=== PATIENT | female | born 1945 | race Caucasian/White ===

== ENCOUNTER 2016-09-19 13:06 | Inpatient (IN) | payer MEDICARE, OTHER ==
[~2016-09-19] VITALS: Ht 162.6 cm; Wt 63.6 kg
[2016-09-19 12:35] LABS: CLARITY (FLUID) HAZY; COLOR (FLUID) YELLOW; RBC (FLUID) 294 u/L; WBC (FLUID) 38 u/L
[2016-09-19 12:37] LABS: LYMPHOCYTES (FLUID) 64 %; MONOCYTES (FLUID) 20 %; NEUTROPHILS (FLUID) 16 %
[~2016-09-19 13:06] MED LIST: CALCIUM + VITA1 EACH PO; COMPETE1 EACH PO; FLUTICASONE PRO30 GM TOP; NEURONTIN100 MG PO; NORITATE60 GM TOP; PLAQUENIL200 MG PO; PREDNISONE 5MG T5 MG PO; SLOW RELEASE I168 MG PO; SULFASALAZINE500 MG PO; VITAMIN D2000 UNI1 PO
--- NOTE | 2016-09-19 13:54 | NUR ---
1015 PT IN ULTRASOUND FOR RIGHT THORACENTESIS. B/P 150/80 P-86 R-18 O2 SAT 96% RA. ALLERGIC TO BACTRIM AND CODEINE. INFORMED CONSENT OBTAINED AND TIME OUT COMPLETED. PROCEDURE PERFORMED BY DR. WEBER WITH PT SITTING UP ON SIDE OF BED. 1100 ML. YELLOW FLUID OBTAINED. NEEDLE REMOVED, BANDAGE IN PLACE. TOLERATED WELL. PORT CHEST X-RAY COMPLETED AND REVIEWED BY DR. WEBER. PT INFORMED OF PNEUMOTHORAX BY DR. WEBER. DISCUSSED PROCEDURE UNDER CT GUIDANCE WITH PT. INFORMED CONSENT OBTAINED FOR 10 FR. THORACIC CATHETER PLACEMENT UNDER CT GUIDANCE. MOVED PATIENT TO CT VIA STRETCHER AND PLACED ON CT TABLE WITH HER RIGHT SIDE UP. O2 SAT REMAINS 96% RA. COLOR PINK. RESPIRATIONS EASY. 10 FR. THORACIC CATHETER INSERTED PER DR. WEBER AND CONNECTED TO PLEURA-VAC. DR. WEBER CONTACTED DR. ALVES WHO WILL ADMIT PT TO MED-SURG BED.1130 B/P 123/68 P-82 R-18 O2 SAT 96% RA AFTER CHEST CATHETER PLACED. RESTING ON STRETCHER WITH HOB ELEVATED 30 DEGREES. RESPS EASY. TALKING WITH FAMILY MEMBER. EATING ICE CHIPS. 1145 B/P 126/72 P-84 R-18 O2 SAT 96%. CONTINUES TO REST WITHOUT COMPLAINTS. BED PENDING ON MED-SURG. 1200 B/P 125/78 P-84 R-16 O2 SAT 97% RA. TALKING WITH FAMILY MEMBER WITHOUT COMPLAINTS OF DISCOMFORT. 1215 B/P 128/72 P-86 R-18 O2 SAT 96% RA. 1230 REPORT PHONED TO [facility]. 1240 TRANSPORTED TO MED SURG BED 216. MOVED TO BED, TOLERATED WELL. RESPS EASY. FAMILY MEMBER AT BEDSIDE.
[2016-09-19 14:33] LABS: HCT 40.2 % (37.0-47.0); HGB 13.5 g/dl (12.5-16.0); MCH 32.5 pg (25.0-31.0); MCHC 33.6 g/dL (32.0-36.0); MCV 96.6 fL (78.0-100.0); RBC 4.16 M/uL (4.20-5.40); WBC 8.4 K/uL (4.0-10.5)
[2016-09-19 14:55] LABS: ALBUMIN 3.8 g/dL (3.4-4.8); CREATININE 0.6 mg/dL (0.5-1.0); GLOBULIN (CALCULATION) 2.9 g/dL (2.2-4.2); POTASSIUM 3.9 mmol/L (3.5-5.1); TOTAL PROTEIN 6.7 g/dL (6.4-8.3)
[2016-09-19 14:58] LABS: BILIRUBIN - TOTAL 4.9 mg/dL (0.1-1.0)
[2016-09-20 10:10] LABS: CREATININE 0.7 mg/dL (0.5-1.0); POTASSIUM 3.8 mmol/L (3.5-5.1)
--- NOTE | 2016-09-20 11:45 | NUR ---
PER DR MONROY HE WAS NOTIFIED FROM RADILOGIST SHE MISS READ THE SIZE OF TUBE INSTEAD OF IT BEING 8 LATVIAN THE CURRENT TUBE IS 10 LATVIAN AND THERE IS NOT A 12 LATVIAN TO PIGTAIL -CALL PLACED TO DR JEROME TO INFORM HIM, HE STATED UNDERSTANDING AND SCHEDULED PT TO HAVE REPEAT CXR IN AM
[2016-09-20 18:27] LABS: CKMB 1.39 ng/mL (0.97-4.94); TROPONIN T < 0.010 ng/mL
--- NOTE | 2016-09-20 19:30 | NUR ---
AT 1724 PT CALLED OUT STATING SHE WAS HAVING GENERALIZED PAIN- X 1 NORCO 5/325MG GIVEN PO AT 1730 PT CALLED OUT STATING PAIN WAS INCREASING AND MORE ON HER LEFT SIDE TOWARDS HER HEART STATES IT FELT SHARP 17:30 V/S AT THIS TIME 123/79 86 18 98.1 100% CALL PLACED TO DR MONROY - AWAITING CALL BACK CALL RESP REQUESTING STAT EKG, FSBS AT THIS TIME 119 O2 2 LITERS N/C PLACED FOR COMFORT - PT RATES HER PAIN AT A 8 AT THIS TIME 17:45 [address] X1 DR MONROY AT BEDSIDE RECIEVED ORDER FOR 1MG MORHINE IVP @ 1750 121/77 91 18 98.1 100% PT RATES PAIN #8 105/71 89 18 98.2 98% RECIEVED ORDER FOR ADDITIONAL DOSE OF MORPHINE 2MG IVP @ 1755 OBTAIN BLOOD WORK AT THIS TIME FOR CARDIAC ENZYMES - BLOOD SENT TO LAB STAT PT STATES MINIMAL RELIEF AT THIS TIME PT FAMILY FRIEND IN TO SEE PT, PT WAS CONVERSING WITH VISITOR WAS ABLE TO HAVE A CONVERSATION RATED HER PAIN AT 4-6 PT PLACED ON TELE MONITOR RECIEVED ORDER FOR PCXR AT THIS TIME RAD CALLED FOR STAT PCXR RAD IN AT 1835 OBTAIN CXR V/S @ THIS TIME 1820 - 121/77 91 18 98.1 98% RATING PAIN 4-6 RESULTS CPK 33 CKMB 1.39 TROPONIN- T NEG PT CONTINUES TO VERBALIZE CHEST DISCOMFORT STATES IMPROVING BUT GONE V/S 115/84 94 18 98.2 100% PAIN 4 RECIEVED ORDERS TO TRANSFER PT TO ICU REPORT GIVEN TO ICU PT TRANSFERRED
[2016-09-20 21:28] LABS: CKMB 1.26 ng/mL (0.97-4.94); TROPONIN T < 0.010 ng/mL
[2016-09-21 06:46] LABS: CREATININE 0.8 mg/dL (0.5-1.0); POTASSIUM 4.2 mmol/L (3.5-5.1)
[2016-09-21 06:48] LABS: CKMB 1.26 ng/mL (0.97-4.94); TROPONIN T < 0.010 ng/mL
[2016-09-22 04:33] LABS: HCT 40.2 % (37.0-47.0); HGB 13.2 g/dl (12.5-16.0); MCH 32.4 pg (25.0-31.0); MCHC 32.8 g/dL (32.0-36.0); MCV 98.5 fL (78.0-100.0); MPV 9.5 fL (6.0-9.5); RBC 4.08 M/uL (4.20-5.40); WBC 9.5 K/uL (4.0-10.5)
[2016-09-22 04:49] LABS: CREATININE 0.8 mg/dL (0.5-1.0); POTASSIUM 4.8 mmol/L (3.5-5.1)
[2016-09-22 10:35] LABS: BILIRUBIN 1+ mg/dL (NEGATIVE); BLOOD 2+ Ery/uL (NEGATIVE); CLARITY CLEAR (CLEAR); COLOR ORANGE (YELLOW); GLUCOSE (U) NORMAL (NORMAL); KETONE (U) NEGATIVE (NEGATIVE); LEUKOCYTES TRACE Leu/uL (NEGATIVE); NITRITE NEGATIVE (NEGATIVE); PROTEIN TRACE (LOW) mg/dL (NEGATIVE); pH 5.5 (5.0-9.0)
[2016-09-22 10:54] LABS: BACTERIA TRACE
[2016-09-23 06:12] LABS: HCT 37.3 % (37.0-47.0); HGB 12.4 g/dl (12.5-16.0); MCH 32.4 pg (25.0-31.0); MCHC 33.2 g/dL (32.0-36.0); MCV 97.4 fL (78.0-100.0); MPV 9.9 fL (6.0-9.5); RBC 3.83 M/uL (4.20-5.40); RDW 13.8 % (11.5-14.0); WBC 11.8 K/uL (4.0-10.5)
[2016-09-23 06:28] LABS: CREATININE 0.7 mg/dL (0.5-1.0); POTASSIUM 4.8 mmol/L (3.5-5.1)
[2016-09-23 18:38] LABS: CREATININE 0.7 mg/dL (0.5-1.0); POTASSIUM 4.5 mmol/L (3.5-5.1)
[2016-09-24 04:27] LABS: HCT 38.2 % (37.0-47.0); HGB 12.5 g/dl (12.5-16.0); MCH 32.1 pg (25.0-31.0); MCHC 32.7 g/dL (32.0-36.0); MCV 97.9 fL (78.0-100.0); MPV 9.8 fL (6.0-9.5); RBC 3.9 M/uL (4.20-5.40); RDW 13.7 % (11.5-14.0); WBC 8.7 K/uL (4.0-10.5)
[2016-09-24 04:42] LABS: CREATININE 0.7 mg/dL (0.5-1.0); POTASSIUM 4.9 mmol/L (3.5-5.1)
[2016-09-25 05:41] LABS: HCT 37.4 % (37.0-47.0); HGB 12.6 g/dl (12.5-16.0); MCH 32.6 pg (25.0-31.0); MCHC 33.7 g/dL (32.0-36.0); MCV 96.9 fL (78.0-100.0); MPV 9.6 fL (6.0-9.5); RBC 3.86 M/uL (4.20-5.40); RDW 13.9 % (11.5-14.0)
[2016-09-25 05:58] LABS: ALBUMIN 3.2 g/dL (3.4-4.8); BILIRUBIN - TOTAL 2.4 mg/dL (0.1-1.0); CREATININE 0.6 mg/dL (0.5-1.0); GLOBULIN (CALCULATION) 3.3 g/dL (2.2-4.2); MAGNESIUM 2.07 mg/dL (1.40-2.10); PHOSPHORUS 3.3 mg/dL (2.7-4.5); POTASSIUM 5.1 mmol/L (3.5-5.1); TOTAL PROTEIN 6.5 g/dL (6.4-8.3)
[2016-09-26 05:26] LABS: HCT 37.7 % (37.0-47.0); HGB 12.5 g/dl (12.5-16.0); MCH 32.1 pg (25.0-31.0); MCHC 33.2 g/dL (32.0-36.0); MCV 96.7 fL (78.0-100.0); MPV 9.5 fL (6.0-9.5); RBC 3.9 M/uL (4.20-5.40); RDW 13.9 % (11.5-14.0); WBC 6.5 K/uL (4.0-10.5)
[2016-09-26 05:42] LABS: CREATININE 0.8 mg/dL (0.5-1.0)
[2016-09-27 06:18] LABS: HCT 39.8 % (37.0-47.0); HGB 13.1 g/dl (12.5-16.0); MCH 31.7 pg (25.0-31.0); MCHC 32.9 g/dL (32.0-36.0); MCV 96.4 fL (78.0-100.0); MPV 9.5 fL (6.0-9.5); RBC 4.13 M/uL (4.20-5.40); WBC 6.7 K/uL (4.0-10.5)
[2016-09-27 06:35] LABS: ALBUMIN 3.2 g/dL (3.4-4.8); BILIRUBIN - TOTAL 2.1 mg/dL (0.1-1.0); CREATININE 0.7 mg/dL (0.5-1.0); GLOBULIN (CALCULATION) 3.5 g/dL (2.2-4.2); POTASSIUM 4.6 mmol/L (3.5-5.1); TOTAL PROTEIN 6.7 g/dL (6.4-8.3)
[2016-10-06] MEDS ORDERED: LASIX20 MG PO (12:08)
[2016-10-06] MEDS ORDERED: NORCO 5-325 TA1 EACH PO (12:08)
== END 2016-09-27 13:40 | DRG 200 ==
LOC: FIS 13:06 → FMS 13:09 → FIS 13:17 → FMS 16:00 → FICU 09-20 18:55 → FMS 09-22 10:42
PROVIDERS: Internal Medicine Nephrology; Internal Medicine Pulmonary Disease; ADMIT Internal Medicine Cardiovascular Disease
PROC: 0W9930Z Drainage of Right Pleural Cavity with Drainage Device, Percutaneous Approach (ICD-10-PCS; principal; 2016-09-19)
DX: J95.811 Postprocedural pneumothorax (principal); J90 Pleural effusion, not elsewhere classified; E22.2 Syndrome of inappropriate secretion of antidiuretic hormone; I50.32 Chronic diastolic (congestive) heart failure; R18.8 Other ascites; M06.9 Rheumatoid arthritis, unspecified; Z88.2 Allergy status to sulfonamides; Z88.5 Allergy status to narcotic agent; N83.9 Noninflammatory disorder of ovary, fallopian tube and broad ligament, unspecified; E80.6 Other disorders of bilirubin metabolism
CPT/HCPCS: 36415; 71010; 71250; 71260; 76705; 80048; 80053; 81001; 82550; 82553; 82945; 83615; 83735; 83880; 83986; 84100; 84300; 84484; 87070; 87088; 87102; 87116; 87205; 89051; 93005; 97110; 97116; 97162; 97530-GP; G0378; J1885; J1940; J2270; J2405; Q9967

== ENCOUNTER 2016-09-27 13:14 | Inpatient (IN) | payer MEDICARE, OTHER ==
[2016-10-04 10:46] LABS: CREATININE 0.7 mg/dL (0.5-1.0); POTASSIUM 4.6 mmol/L (3.5-5.1)
--- NOTE | 2016-10-05 09:55 | NUR ---
70 YEAR OLD FEMALE DC HOME S/P PNEUMONOTHORAX, A/O X3 WENT OVER DC ORDERS AND FOLLOW UP APPT, R/V UNDERSTANDING
[2016-10-05] MEDS ORDERED: COLACE100 MG PO (12:08)
[2016-10-05] MEDS ORDERED: 8 HOUR650 MG PO (12:09)
--- NOTE | 2016-10-06 08:49 | NUR ---
PT. D/C HOME ON 10/05/16. PT. REQUESTED OUTPT. THERAPY AT [facility]. FIRST APPT IS 10/07/16 @ 10:00 A.M. PT. HAS A ROLLING WALKER, 07/03, ELEVATED TOLIET SEAT, WALK IN SHOWER. PT. HAS A CARDIOLOGY APPT. 10/08, RHEUMATOLOGY APPT. ON 10/[address] BARRON IN [facility] ON AT 3:00 P.M. PER ALCIRA, AMMONIA REFRIGERATION WORKER WITH DR. GARDNER'S OFFICE PT. NEEDS CARDIAC CLERANCE AND PULONARY CLEARANCE BEFORE THEY CAN SCHEDULE SURGERY. ALCIRA [phone]. D/C NOTICE AND QUESTIONNAIRE GIVEN.
[2016-10-06] MEDS ORDERED: LASIX20 MG PO (12:08)
[2016-10-06] MEDS ORDERED: NORCO 5-325 TA1 EACH PO (12:08)
== END 2016-10-05 09:57 | disposition home or self-care (01) | DRG 200 ==
LOC: FSNU 13:14
PROVIDERS: Nurse Practitioner Adult Health; ADMIT Internal Medicine Cardiovascular Disease
DX: J95.811 Postprocedural pneumothorax (principal); J90 Pleural effusion, not elsewhere classified; E22.2 Syndrome of inappropriate secretion of antidiuretic hormone; I50.32 Chronic diastolic (congestive) heart failure; R18.8 Other ascites; Z51.89 Encounter for other specified aftercare; M06.9 Rheumatoid arthritis, unspecified; Z88.2 Allergy status to sulfonamides; Z88.5 Allergy status to narcotic agent; N83.9 Noninflammatory disorder of ovary, fallopian tube and broad ligament, unspecified; E80.6 Other disorders of bilirubin metabolism
CPT/HCPCS: 36415; 80048; 97110; 97116; 97162; 97166; 97530; 97530-GP; 97537

== ENCOUNTER 2020-09-15 14:36 | Day surgery (SDCO) | payer MEDICARE, OTHER ==
[~2020-09-15 14:36] MED LIST changes: +8 HOUR650 MG PO; +ACETAMINOPHEN500 M1 PO; +ADVIL200 M1 PO; +AUGMENTIN 875-1 EACH PO; +BIOFREEZE89 ML TOP; +BUMETANIDE1 MG PO; +BUMEX1 MG PO; +CANE; +COLACE100 MG PO; -COMPETE1 EACH PO; +LASIX20 MG PO; +LINSEED OIL1 ML PO; +MULTI-DAY PLUS1 EAC1 PO; +NORCO 5-325 TA1 EACH PO; +OMEGA-31000 MG PO; +ORENCIA50 MG/0.4 IV; +OXYBUTYNIN CHLO10 MG PO; +RITUXAN500 MG IV; -VITAMIN D2000 UNI1 PO; +VITAMIN D31250 MC1 PO
[2020-09-15 15:54] LABS: BASOPHIL 0.8 % (0-2); EOSINOPHIL 2.1 % (0-7); HCT 38.6 % (37.0-47.0); HGB 12.7 g/dl (12.5-16.0); LYMPHOCYTE 9.9 % (15-48); MCH 32.4 pg (25.0-31.0); MCHC 32.9 g/dL (32.0-36.0); MCV 98.5 fL (78.0-100.0); MONOCYTE 13.2 % (0-12); MPV 10.7 fL (6.0-9.5); NEUTROPHIL 73.8 % (41-80); NRBC 0; PLT 151 K/uL (150-400); RBC 3.92 M/uL (4.20-5.40); RDW 14.6 % (11.5-14.0); WBC 4.8 K/uL (4.0-10.5)
[2020-09-15 16:16] LABS: ALBUMIN 3.1 g/dL (3.4-5.0); BILIRUBIN - TOTAL 2.2 mg/dL (0.2-1.0); BUN/CREAT RATIO (CALC) 19.4 RATIO; CREATININE 1.08 mg/dL (0.51-0.95); GLOBULIN (CALCULATION) 3.2 g/dL; MAGNESIUM 1.4 mg/dL (1.8-2.4); POTASSIUM 3.4 mmol/L (3.5-5.1); TOTAL PROTEIN 6.3 g/dL (6.4-8.2)
[2020-09-15] MEDS ORDERED: BUMEX1 MG PO ×2 (18:16→18:17)
[2020-09-15] MEDS ORDERED: FISH OIL 1,0001 EACH PO (18:17)
[2020-09-15] MEDS ORDERED: FLAXSEED340 GM PO (18:18)
[2020-09-15] MEDS ORDERED: OS-CAL500 MG PO (18:18)
[2020-09-15] MEDS ORDERED: PLAQUENIL200 MG PO (18:19)
[2020-09-15] MEDS ORDERED: DITROPAN5 MG PO (18:19)
[2020-09-15] MEDS ORDERED: NEURONTIN100 MG PO (18:19)
[2020-09-15] MEDS ORDERED: TYMLOS1.56 ML SC (18:20)
[2020-09-15] MEDS ORDERED: VITAMIN D350 MC3 PO (18:21)
[2020-09-16 04:48] LABS: HCT 38.4 % (37.0-47.0); HGB 12.4 g/dl (12.5-16.0); MCH 31.7 pg (25.0-31.0); MCHC 32.3 g/dL (32.0-36.0); MCV 98.2 fL (78.0-100.0); MPV 10.6 fL (6.0-9.5); RBC 3.91 M/uL (4.20-5.40); RDW 14.6 % (11.5-14.0); WBC 3.7 K/uL (4.0-10.5)
[2020-09-16 05:04] LABS: BUN/CREAT RATIO (CALC) 21.8 RATIO; CREATININE 1.01 mg/dL (0.51-0.95); POTASSIUM 3.9 mmol/L (3.5-5.1)
[2020-09-17 05:57] LABS: HCT 37.9 % (37.0-47.0); HGB 12.4 g/dl (12.5-16.0); MCHC 32.7 g/dL (32.0-36.0); MCV 97.9 fL (78.0-100.0); MPV 11.1 fL (6.0-9.5); RBC 3.87 M/uL (4.20-5.40); RDW 14.7 % (11.5-14.0); WBC 3.2 K/uL (4.0-10.5)
[2020-09-17 06:24] LABS: BUN/CREAT RATIO (CALC) 27.3 RATIO; CREATININE 0.99 mg/dL (0.51-0.95); POTASSIUM 3.7 mmol/L (3.5-5.1)
[2020-09-18 14:12] LABS: A/G RATIO 1.3 (0.7-1.7); ALBUMIN 3.2 g/dL (2.9-4.4); ALPHA-1-GLOBULIN 0.3 g/dL (0.0-0.4); ALPHA-2-GLOBULIN 0.6 g/dL (0.4-1.0); BETA GLOBULIN 0.9 g/dL (0.7-1.3); GAMMA GLOBULIN 0.6 g/dL (0.4-1.8); GLOBULIN, TOTAL 2.5 g/dL (2.2-3.9); M-SPIKE Not Observed g/dL (Not Observed); PROTEIN, TOTAL, SERUM 5.7 g/dL (6.0-8.5)
== END 2020-09-17 10:30 | disposition home or self-care (01) ==
LOC: FER 14:36 → FTCU 16:41
PROVIDERS: Emergency Medicine; ADMIT Hospitalist
DX: E83.52 Hypercalcemia (principal); M06.9 Rheumatoid arthritis, unspecified; I50.9 Heart failure, unspecified; E87.6 Hypokalemia; M81.0 Age-related osteoporosis without current pathological fracture; Z86.13 Personal history of malaria; Z86.12 Personal history of poliomyelitis; Z98.890 Other specified postprocedural states; Z88.5 Allergy status to narcotic agent; Z88.1 Allergy status to other antibiotic agents; Z88.2 Allergy status to sulfonamides; Z79.899 Other long term (current) drug therapy; Z20.822 Contact with and (suspected) exposure to COVID-19
CPT/HCPCS: 36415; 80048; 80053; 82306; 82330; 82652; 83735; 84155; 84165; 85025; 86335; 97166; 97530; 99285; G0378; J3475; J7030; U0002

== ENCOUNTER 2020-09-22 16:15 | Day surgery (SDCO) | payer MEDICARE, OTHER ==
[~2020-09-22 16:15] MED LIST changes: +DITROPAN5 MG PO; +FISH OIL 1,0001 EACH PO; +FLAXSEED340 GM PO; +OS-CAL500 MG PO; +TYMLOS1.56 ML SC; +VITAMIN D350 MC3 PO
[2020-09-22 16:44] LABS: BASOPHIL 0.2 % (0-2); EOSINOPHIL 0.4 % (0-7); HCT 41.1 % (37.0-47.0); HGB 13.8 g/dl (12.5-16.0); LYMPHOCYTE 3.1 % (15-48); MCH 32.5 pg (25.0-31.0); MCHC 33.6 g/dL (32.0-36.0); MCV 96.9 fL (78.0-100.0); MONOCYTE 7.8 % (0-12); MPV 10.9 fL (6.0-9.5); NEUTROPHIL 88.1 % (41-80); NRBC 0; PLT 176 K/uL (150-400); RBC 4.24 M/uL (4.20-5.40); RDW 14.4 % (11.5-14.0); WBC 10.2 K/uL (4.0-10.5)
[2020-09-22 17:04] LABS: ALBUMIN 3.3 g/dL (3.4-5.0); BILIRUBIN - TOTAL 2.4 mg/dL (0.2-1.0); CREATININE 1.07 mg/dL (0.51-0.95); GLOBULIN (CALCULATION) 3.2 g/dL; MAGNESIUM 1.4 mg/dL (1.8-2.4); POTASSIUM 3.4 mmol/L (3.5-5.1); TOTAL PROTEIN 6.5 g/dL (6.4-8.2)
[2020-09-22] MEDS ORDERED: MACROBID100 MG PO (17:31)
[2020-09-22] MEDS ORDERED: ACETAMINOPHEN325 MG PO (18:57)
[2020-09-22] MEDS ORDERED: AMOXICILLIN500 MG PO (18:58)
[2020-09-22] MEDS ORDERED: BIOTENE PBF473 ML PO (18:59)
[2020-09-22] MEDS ORDERED: REFRESH LIQUIGE15 ML TOP (19:00)
[2020-09-22] MEDS ORDERED: REFRESH OPTIVE10 ML TOP (19:02)
[2020-09-23 06:56] LABS: ALBUMIN 3.1 g/dL (3.4-5.0); CREATININE 0.97 mg/dL (0.51-0.95); PHOSPHORUS 2.8 mg/dL (2.6-4.7); POTASSIUM 3.4 mmol/L (3.5-5.1)
[2020-09-24 04:29] LABS: BUN/CREAT RATIO (CALC) 37.7 RATIO; CREATININE 1.22 mg/dL (0.51-0.95); PHOSPHORUS 2.4 mg/dL (2.6-4.7); POTASSIUM 3.1 mmol/L (3.5-5.1)
== END 2020-09-24 11:43 | disposition home or self-care (01) ==
LOC: FER 16:15 → FMS 17:46
PROVIDERS: Emergency Medicine; ADMIT Allergy & Immunology Allergy
DX: M06.9 Rheumatoid arthritis, unspecified (principal); E83.52 Hypercalcemia; I50.9 Heart failure, unspecified; E83.42 Hypomagnesemia; R53.1 Weakness; R53.83 Other fatigue; Z20.822 Contact with and (suspected) exposure to COVID-19; Z88.5 Allergy status to narcotic agent
CPT/HCPCS: 36415; 71045; 80053; 80069; 83735; 85025; 87088; 87186; 93005; G0378; J3475; J3489; J7030; U0002

== ENCOUNTER 2020-11-21 17:02 | Inpatient (IN) | payer MEDICARE, OTHER ==
[~2020-11-21] VITALS: Ht 162.6 cm; Wt 58.6 kg
[~2020-11-21 17:02] MED LIST changes: +ACETAMINOPHEN325 MG PO; +AMOXICILLIN500 MG PO; +BIOTENE PBF473 ML PO; +MACROBID100 MG PO; +REFRESH LIQUIGE15 ML TOP; +REFRESH OPTIVE10 ML TOP
[2020-11-21 18:37] LABS: INR 1.25 (0.9-1.2); PTT 31.2 SECONDS (24.4-34.7)
[2020-11-21 18:42] LABS: BASOPHIL 0.2 % (0-2); EOSINOPHIL 0 % (0-7); HCT 44.8 % (37.0-47.0); HGB 14.7 g/dl (12.5-16.0); LYMPHOCYTE 3.6 % (15-48); MCH 30.8 pg (25.0-31.0); MCHC 32.8 g/dL (32.0-36.0); MCV 93.7 fL (78.0-100.0); MPV 9.4 fL (6.0-9.5); NEUTROPHIL 94.7 % (41-80); NRBC 0; PLT 240 K/uL (150-400); RBC 4.78 M/uL (4.20-5.40); RDW 14.5 % (11.5-14.0); WBC 4.2 K/uL (4.0-10.5)
[2020-11-21 18:43] LABS: IRON % SATURATION 13.8 %SAT (20-50)
[2020-11-21 18:49] LABS: LACTIC ACID 1.1 mmol/L (0.4-1.9)
[2020-11-21 18:56] LABS: PRO-BNP 1001 pg/mL (<125)
[2020-11-21 19:12] LABS: ALBUMIN 2.7 g/dL (3.4-5.0); BILIRUBIN - TOTAL 1.9 mg/dL (0.2-1.0); BUN/CREAT RATIO (CALC) 28.8 RATIO; C-REACTIVE PROTEIN 4.3 mg/dL (<=0.90); CREATININE 0.66 mg/dL (0.51-0.95); GLOBULIN (CALCULATION) 3.8 g/dL; MAGNESIUM 1.8 mg/dL (1.8-2.4); POTASSIUM 5.1 mmol/L (3.5-5.1); TOTAL PROTEIN 6.5 g/dL (6.4-8.2)
[2020-11-21 22:12] LABS: BILIRUBIN NEGATIVE (NEGATIVE); BLOOD NEGATIVE Ery/uL (NEGATIVE); CLARITY CLEAR (CLEAR); COLOR YELLOW (YELLOW); GLUCOSE (U) NORMAL (NORMAL); LEUKOCYTES NEGATIVE Leu/uL (NEGATIVE); NITRITE NEGATIVE (NEGATIVE); PROTEIN NEGATIVE (NEGATIVE); UROBILINOGEN 0.2 mg/dL (0.2-1.0)
[2020-11-21 22:45] LABS: CORONAVIRUS 2019 SARS-COV-2 NEGATIVE (NEGATIVE); INFLUENZA A NAA NEGATIVE (NEGATIVE)
[2020-11-21] MEDS ORDERED: NEURONTIN100 MG PO (23:13)
[2020-11-21] MEDS ORDERED: LASIX20 MG PO (23:13)
[2020-11-21] MEDS ORDERED: LOVAZA1 GM PO (23:14)
[2020-11-21] MEDS ORDERED: ALDACTONE25 MG PO (23:14)
[2020-11-21] MEDS ORDERED: REFRESH CLASSI1 EACH EYEBOTH (23:26)
[2020-11-22] MEDS ORDERED: PLAQUENIL200 MG PO (02:08)
[2020-11-22 05:05] LABS: ALBUMIN 2.4 g/dL (3.4-5.0); BILIRUBIN - TOTAL 1.4 mg/dL (0.2-1.0); BUN/CREAT RATIO (CALC) 29.7 RATIO; CREATININE 0.64 mg/dL (0.51-0.95); GLOBULIN (CALCULATION) 3.4 g/dL; MAGNESIUM 1.9 mg/dL (1.8-2.4); POTASSIUM 4.5 mmol/L (3.5-5.1); TOTAL PROTEIN 5.8 g/dL (6.4-8.2)
[2020-11-22 05:07] LABS: BASOPHIL 0.2 % (0-2); EOSINOPHIL 0 % (0-7); HGB 13.6 g/dl (12.5-16.0); LYMPHOCYTE 4.3 % (15-48); MCH 30.6 pg (25.0-31.0); MCHC 32.4 g/dL (32.0-36.0); MCV 94.6 fL (78.0-100.0); MONOCYTE 7.5 % (0-12); MPV 9.5 fL (6.0-9.5); NEUTROPHIL 87.7 % (41-80); NRBC 0; PLT 230 K/uL (150-400); RBC 4.44 M/uL (4.20-5.40); RDW 14.4 % (11.5-14.0); WBC 5.8 K/uL (4.0-10.5)
[2020-11-22 05:11] LABS: CKMB 2.2 ng/mL (0.0-3.6); PRO-BNP 1501 pg/mL (<125)
[2020-11-23 06:01] LABS: BASOPHIL 0.4 % (0-2); EOSINOPHIL 0.8 % (0-7); HCT 42.1 % (37.0-47.0); HGB 13.8 g/dl (12.5-16.0); LYMPHOCYTE 9.7 % (15-48); MCHC 32.8 g/dL (32.0-36.0); MCV 94.6 fL (78.0-100.0); MONOCYTE 11.1 % (0-12); MPV 9.6 fL (6.0-9.5); NEUTROPHIL 77.7 % (41-80); NRBC 0; PLT 259 K/uL (150-400); RBC 4.45 M/uL (4.20-5.40); RDW 14.6 % (11.5-14.0); WBC 7.2 K/uL (4.0-10.5)
[2020-11-23 06:07] LABS: BUN/CREAT RATIO (CALC) 24.4 RATIO; CREATININE 0.78 mg/dL (0.51-0.95)
[2020-11-24 06:37] LABS: BASOPHIL 0.6 % (0-2); EOSINOPHIL 0.9 % (0-7); HCT 42.5 % (37.0-47.0); HGB 13.9 g/dl (12.5-16.0); LYMPHOCYTE 8.6 % (15-48); MCH 31.1 pg (25.0-31.0); MCHC 32.7 g/dL (32.0-36.0); MCV 95.1 fL (78.0-100.0); MONOCYTE 11.9 % (0-12); MPV 9.5 fL (6.0-9.5); NEUTROPHIL 77.7 % (41-80); NRBC 0; PLT 231 K/uL (150-400); RBC 4.47 M/uL (4.20-5.40); RDW 14.5 % (11.5-14.0); WBC 6.9 K/uL (4.0-10.5)
[2020-11-24 07:12] LABS: BUN/CREAT RATIO (CALC) 21.5 RATIO; CREATININE 0.79 mg/dL (0.51-0.95); POTASSIUM 4.5 mmol/L (3.5-5.1)
[2020-11-25] MEDS ORDERED: BUMETANIDE1 MG PO (11:29)
== END 2020-11-25 15:20 | disposition home or self-care (01) | DRG 292 ==
LOC: FER 17:02 → FMS 20:39
PROVIDERS: Emergency Medicine; Emergency Medicine Emergency Medical Services; Nurse Practitioner; Nurse Practitioner Family; ADMIT Internal Medicine
DX: I11.0 Hypertensive heart disease with heart failure (principal); D84.821 Immunodeficiency due to drugs; I50.33 Acute on chronic diastolic (congestive) heart failure; M06.9 Rheumatoid arthritis, unspecified; K21.9 Gastro-esophageal reflux disease without esophagitis; Z20.822 Contact with and (suspected) exposure to COVID-19; K76.0 Fatty (change of) liver, not elsewhere classified; M19.90 Unspecified osteoarthritis, unspecified site; K58.9 Irritable bowel syndrome, unspecified; Z79.899 Other long term (current) drug therapy; Z88.5 Allergy status to narcotic agent; Z88.2 Allergy status to sulfonamides; Z87.01 Personal history of pneumonia (recurrent); Z86.12 Personal history of poliomyelitis; Z98.41 Cataract extraction status, right eye; Z98.42 Cataract extraction status, left eye; Z98.890 Other specified postprocedural states
CPT/HCPCS: 36415; 71250; 80048; 80053; 80061; 81003; 82553; 82728; 83540; 83550; 83605; 83735; 83880; 84145; 84443; 84484; 85025; 85610; 85730; 86140; 87088; 93005; 94010; 94760; J1650; U0002

== ENCOUNTER 2021-05-28 19:37 | Emergency (ER) | payer MEDICARE ==
[~2021-05-28 19:37] MED LIST changes: +ALDACTONE25 MG PO; +LOVAZA1 GM PO; +REFRESH CLASSI1 EACH EYEBOTH
[2021-05-28 20:59] LABS: BASOPHIL 0.8 % (0-2); EOSINOPHIL 0.8 % (0-7); HCT 40.6 % (37.0-47.0); HGB 13.1 g/dl (12.5-16.0); LYMPHOCYTE 12.5 % (15-48); MCH 31.9 pg (25.0-31.0); MCHC 32.3 g/dL (32.0-36.0); MCV 98.8 fL (78.0-100.0); MONOCYTE 13.3 % (0-12); MPV 10.3 fL (6.0-9.5); NEUTROPHIL 72.2 % (41-80); NRBC 0; PLT 148 K/uL (150-400); RBC 4.11 M/uL (4.20-5.40); RDW 14.4 % (11.5-14.0)
[2021-05-28 21:21] LABS: BUN/CREAT RATIO (CALC) 23.2 RATIO; CREATININE 0.99 mg/dL (0.51-0.95); POTASSIUM 3.3 mmol/L (3.5-5.1)
[2021-05-28 21:32] LABS: LACTIC ACID 0.9 mmol/L (0.4-1.9)
[2021-05-28 21:36] LABS: CORONAVIRUS 2019 SARS-COV-2 NEGATIVE (NEGATIVE); INFLUENZA A NAA NEGATIVE (NEGATIVE)
[2021-05-28] MEDS ORDERED: VIBRAMYCIN100 MG PO (23:54)
[2021-05-28] MEDS ORDERED: AUGMENTIN 875-1 EACH PO (23:54)
[2021-05-28] MEDS ORDERED: VENTOLIN HFA IN18 GM INH (23:55)
[2021-05-28] MEDS ORDERED: SYMBICORT 16010.2 GM INH (23:55)
== END 2021-05-29 00:15 | disposition home or self-care (01) ==
LOC: FER 19:37
PROVIDERS: Internal Medicine
DX: I50.9 Heart failure, unspecified (principal); J81.1 Chronic pulmonary edema; J96.11 Chronic respiratory failure with hypoxia; Z20.822 Contact with and (suspected) exposure to COVID-19; Z53.29 Procedure and treatment not carried out because of patient's decision for other reasons; Z88.1 Allergy status to other antibiotic agents; Z88.5 Allergy status to narcotic agent; Z99.81 Dependence on supplemental oxygen
CPT/HCPCS: 36415; 36600; 71250; 80048; 82803; 83605; 83880; 84145; 84484; 85025; 93005; 94640; 94664; J2543; U0002

== ENCOUNTER 2021-09-25 13:25 | Inpatient (IN) | payer MEDICARE, OTHER ==
[~2021-09-25] VITALS: Ht 162.6 cm; Wt 53.5 kg
[~2021-09-25 13:25] MED LIST changes: +SYMBICORT 16010.2 GM INH; +VENTOLIN HFA IN18 GM INH; +VIBRAMYCIN100 MG PO
[2021-09-25 14:04] LABS: BASOPHIL 0.2 % (0-2); EOSINOPHIL 0.1 % (0-7); HCT 41.9 % (37.0-47.0); HGB 13.7 g/dl (12.5-16.0); LYMPHOCYTE 4.8 % (15-48); MCH 32.2 pg (25.0-31.0); MCHC 32.7 g/dL (32.0-36.0); MCV 98.6 fL (78.0-100.0); MONOCYTE 6.3 % (0-12); MPV 9.9 fL (6.0-9.5); NEUTROPHIL 88.1 % (41-80); NRBC 0; PLT 167 K/uL (150-400); RBC 4.25 M/uL (4.20-5.40); RDW 13.5 % (11.5-14.0); WBC 9.5 K/uL (4.0-10.5)
[2021-09-25 14:15] LABS: INR 1.17 (0.9-1.2); PROTHROMBIN TIME 14.3 SECONDS (11.8-13.4); PTT 26.9 SECONDS (24.4-34.7)
[2021-09-25 14:49] LABS: BILIRUBIN NEGATIVE (NEGATIVE); BLOOD TRACE-INTACT Ery/uL (NEGATIVE); CLARITY CLEAR (CLEAR); COLOR YELLOW (YELLOW); GLUCOSE (U) NORMAL (NORMAL); LEUKOCYTES NEGATIVE Leu/uL (NEGATIVE); NITRITE NEGATIVE (NEGATIVE); PROTEIN NEGATIVE (NEGATIVE)
[2021-09-25 14:51] LABS: ALBUMIN 3.2 g/dL (3.4-5.0); BILIRUBIN - TOTAL 2.7 mg/dL (0.2-1.0); BUN/CREAT RATIO (CALC) 27.7 RATIO; CREATININE 0.83 mg/dL (0.51-0.95); GLOBULIN (CALCULATION) 3.7 g/dL; POTASSIUM 3.8 mmol/L (3.5-5.1); TOTAL PROTEIN 6.9 g/dL (6.4-8.2)
[2021-09-25 14:53] LABS: LACTIC ACID 1.4 mmol/L (0.4-1.9)
[2021-09-25 14:57] LABS: BACTERIA TRACE; URINARY RBC RARE
[2021-09-25 15:16] LABS: CKMB 1.9 ng/mL (0.0-3.6)
[2021-09-25] MEDS ORDERED: MULTIPLE VITAM1 EACH PO (20:00)
[2021-09-25] MEDS ORDERED: VITAMIN D350 MC3 PO (20:02)
[2021-09-25] MEDS ORDERED: FLONASE ALLER15.8 ML (20:04)
[2021-09-25] MEDS ORDERED: METOLAZONE2.5 MG PO (20:07)
[2021-09-25] MEDS ORDERED: ONDANSETRON ODT4 MG PO (20:08)
[2021-09-25] MEDS ORDERED: K-TAB ER10 MEQ PO (20:10)
[2021-09-25] MEDS ORDERED: VOLTAREN ARTHRI20 GM TOP (20:12)
[2021-09-26 07:28] LABS: BASOPHIL 0.3 % (0-2); HCT 39.5 % (37.0-47.0); HGB 12.8 g/dl (12.5-16.0); LYMPHOCYTE 9.5 % (15-48); MCH 32.2 pg (25.0-31.0); MCHC 32.4 g/dL (32.0-36.0); MCV 99.2 fL (78.0-100.0); MONOCYTE 8.9 % (0-12); MPV 10.2 fL (6.0-9.5); NRBC 0; PLT 157 K/uL (150-400); RBC 3.98 M/uL (4.20-5.40); RDW 13.7 % (11.5-14.0); WBC 9.4 K/uL (4.0-10.5)
[2021-09-26 08:02] LABS: ALBUMIN 2.7 g/dL (3.4-5.0); BILIRUBIN - TOTAL 3.1 mg/dL (0.2-1.0); BUN/CREAT RATIO (CALC) 25.3 RATIO; CREATININE 0.83 mg/dL (0.51-0.95); GLOBULIN (CALCULATION) 2.7 g/dL; TOTAL PROTEIN 5.4 g/dL (6.4-8.2)
--- NOTE | 2021-09-26 17:51 | NUR ---
09/26 Ms. Burnett lives at [facility]. She has 02 at 3 L in daytime, 2 L at night, portable, rollator, rails in btrm, and s. seat. - [facility] has in house therapy if needed. - please call report to: [phone] and fax DS to: [phone].
[2021-09-27] MEDS ORDERED: CEFDINIR300 MG PO (10:41)
[2021-09-27] MEDS ORDERED: NORCO 5-325 TA1 EACH PO (10:41)
[2021-09-27] MEDS ORDERED: PREDNISONE 20MG20 MG PO (10:41)
[2021-09-27] MEDS ORDERED: AZITHROMYCIN250 MG PO (10:41)
--- NOTE | 2021-09-27 12:18 | NUR ---
09/27 Ms. Burnett will return to [facility] today. [facility] will initiated in-house PT per Dir Phu of [facility] services.
== END 2021-09-27 13:05 | disposition home or self-care (01) | DRG 193 ==
LOC: FER 13:25 → FMS 17:14
PROVIDERS: Emergency Medicine; ADMIT Internal Medicine
DX: J18.9 Pneumonia, unspecified organism (principal); J96.21 Acute and chronic respiratory failure with hypoxia; J44.1 Chronic obstructive pulmonary disease with (acute) exacerbation; J44.0 Chronic obstructive pulmonary disease with (acute) lower respiratory infection; Z20.822 Contact with and (suspected) exposure to COVID-19; K75.81 Nonalcoholic steatohepatitis (NASH); M06.9 Rheumatoid arthritis, unspecified; I50.9 Heart failure, unspecified; Z99.81 Dependence on supplemental oxygen; Z86.010 Personal history of colon polyps; Z98.41 Cataract extraction status, right eye; Z98.42 Cataract extraction status, left eye; Z98.890 Other specified postprocedural states; Z79.899 Other long term (current) drug therapy
CPT/HCPCS: 36415; 36600; 71045; 80053; 81001; 82553; 82803; 83605; 83880; 84145; 84484; 85025; 85610; 85730; 87040; 93005; 94640; J0456; J0696; J1650; J2405; J7030; J7050; J7512; Q9967; U0002

== ENCOUNTER 2021-11-30 17:52 | Emergency (ER) | payer MEDICARE, OTHER ==
[~2021-11-30 17:52] MED LIST changes: +AZITHROMYCIN250 MG PO; +CEFDINIR300 MG PO; +FLONASE ALLER15.8 ML; +K-TAB ER10 MEQ PO; +METOLAZONE2.5 MG PO; +MULTIPLE VITAM1 EACH PO; +ONDANSETRON ODT4 MG PO; +PREDNISONE 20MG20 MG PO; +VOLTAREN ARTHRI20 GM TOP
[2021-11-30 18:18] LABS: BASOPHIL 0.7 % (0-2); EOSINOPHIL 1.8 % (0-7); HCT 40.9 % (37.0-47.0); HGB 13.2 g/dl (12.5-16.0); LYMPHOCYTE 15.5 % (15-48); MCH 31.9 pg (25.0-31.0); MCHC 32.3 g/dL (32.0-36.0); MCV 98.8 fL (78.0-100.0); MONOCYTE 14.6 % (0-12); MPV 10.7 fL (6.0-9.5); NRBC 0; PLT 161 K/uL (150-400); RBC 4.14 M/uL (4.20-5.40); RDW 13.9 % (11.5-14.0); WBC 5.5 K/uL (4.0-10.5)
[2021-11-30 18:35] LABS: LACTIC ACID 1.3 mmol/L (0.4-1.9)
[2021-11-30 18:43] LABS: ALBUMIN 3.3 g/dL (3.4-5.0); BILIRUBIN - TOTAL 1.6 mg/dL (0.2-1.0); BUN/CREAT RATIO (CALC) 32.4 RATIO; CREATININE 0.74 mg/dL (0.51-0.95); GLOBULIN (CALCULATION) 3.6 g/dL; POTASSIUM 3.6 mmol/L (3.5-5.1); TOTAL PROTEIN 6.9 g/dL (6.4-8.2)
[2021-11-30 20:02] LABS: CORONAVIRUS 2019 SARS-COV-2 NEGATIVE (NEGATIVE); INFLUENZA A NAA NEGATIVE (NEGATIVE)
== END 2021-11-30 19:49 | disposition home or self-care (01) ==
LOC: FER 17:52
PROVIDERS: Physician Assistant
DX: I50.9 Heart failure, unspecified (principal); J44.9 Chronic obstructive pulmonary disease, unspecified; Z20.822 Contact with and (suspected) exposure to COVID-19; Z99.81 Dependence on supplemental oxygen; Z88.1 Allergy status to other antibiotic agents; Z88.5 Allergy status to narcotic agent; Z79.899 Other long term (current) drug therapy
CPT/HCPCS: 36415; 71045; 80053; 83605; 83880; 84145; 84484; 85025; 93005; U0002